=== PATIENT | male | born 1985 | race Two or more races ===

== ENCOUNTER 2019-05-20 09:45 | Emergency (ER) | payer OTHER ==
[~2019-05-20] VITALS: Ht 170.2 cm; Wt 74.8 kg
== END 2019-05-20 12:53 | disposition home or self-care (01) ==
LOC: ER 09:45 → EMR PED 09:45 → ER 10:16
DX: S01.82XA Laceration with foreign body of other part of head, initial encounter (principal); W23.0XXA Caught, crushed, jammed, or pinched between moving objects, initial encounter; Y93.89 Activity, other specified; Y92.89 Other specified places as the place of occurrence of the external cause; Y99.8 Other external cause status